=== PATIENT | female | born 2000 | race Native Hawaiian/Other Pacific Islander ===

== ENCOUNTER 2024-07-24 06:56 | Emergency (ER) | payer BC, SELFPAY ==
[2024-07-24] MEDS ORDERED: Morphine 4 MG/ML VIAL ONE ×2 (07:27→09:41)
[2024-07-24] MEDS ORDERED: Ondansetron PF 4 MG/2 ML Vial ONE (07:28)
[2024-07-24 07:37] LABS: #Basophils 0.04 10x3/uL (0.0-0.2); #Eosinophils 0.21 10x3/uL (0.0-0.5); #Monocytes 0.58 10x3/uL (0.0-1.1); #Neutrophils 6.03 10x3/uL (1.5-8.4); %Basophils 0.4 % (0.0-2.0); %Eosinophils 2.2 % (0.0-6.0); %Lymphocytes 28.5 % (18.0-47.0); %Neutrophils 62.5 % (40.0-75.0); Hematocrit 41.5 % (34.9-44.5); Hemoglobin 13.2 g/dL (12.0-15.5); Mean Corpuscular HGB CONC 31.8 g/dL (32.0-36.0); Mean Corpuscular Hemoglobin 26.1 pg (27.0-33.0); Mean Corpuscular Volume 82.2 fL (81.6-98.3); Mean Platelet Volume 10.3 fL (7.4-10.4); Platelet Count 335 10x3/uL (150-450); RBC Distribution Width 13.4 % (11.5-14.5); Red Blood Cell (RBC) Count 5.05 10x6/uL (3.90-5.03); White Blood Cell (WBC) Count 9.7 10x3/uL (3.5-10.5)
[2024-07-24 08:11] LABS: ALT (SGPT) 35 U/L (8-55); AST (SGOT) 19 U/L (5-34); Albumin 3.8 g/dL (3.5-5.0); Alkaline Phosphatase 85 U/L (40-110); Anion Gap 17 mmol/L (10-20); BUN (Urea Nitrogen) 13 mg/dL (7.0-18.7); Bilirubin, Total 0.3 mg/dL (0.2-1.2); Calc. Creatinine Clearance 0 mL/min (70-130); Calcium 9.2 mg/dL (7.8-10.44); Carbon Dioxide 18 mmol/L (22-29); Chloride 108 mmol/L (98-107); Estimated GFR 86; Globulin 4.3 g/dL (2.4-3.5); Glucose 116 mg/dL (70-105); Lipase 25 U/L (8-78); Potassium 3.5 mmol/L (3.5-5.1); Protein, Total 8.1 g/dL (6.0-8.3); Sodium 139 mmol/L (136-145)
[2024-07-24 08:21] LABS: Bilirubin Neg (Negative); Blood, Urine 25 (Negative); Clarity Clear (Clear); Glucose, Urine (Dipstick) Normal (Negative); Ketone, Urine Negative (Negative); Leukocyte Negative (Negative); Nitrite Negative (Negative); Protein, Urine (Dipstick) Negative (Neg-Trace); Urobilinogen Normal mg/dL (Less than 2)
[2024-07-24 08:27] LABS: Pregnancy Test - Urine (BHCG) Negative (Negative); Pregu Control Background? CLEAR/WHITE (CLR/WHITE); Pregu Control Bar Appear? YES (CONTROL BAR)
[2024-07-24] MEDS ORDERED: Ketorolac Tromethamine 30 MG (1 mL) VIAL ONE (09:42)
[2024-07-24 09:59] LABS: Bacteria/HPF 1+ HPF (None Seen); CAUTI Indications for Culture Pelvic or flank pain; RBC/HPF 0-3 HPF (0-3); WBC/HPF 0-3 HPF (0-3)
[2024-07-24 10:00] LABS: Urine Culture Reflex No No
[2024-07-24] MEDS ORDERED: Iopamidol 300 61% 100 ML VIAL FS ONE (10:18)
== END 2024-07-24 12:38 | disposition home or self-care (01) ==
LOC: CSHERS 06:56
DX: N83.8 Other noninflammatory disorders of ovary, fallopian tube and broad ligament (principal); Z55.0 Illiteracy and low-level literacy
CPT/HCPCS: 74177; 76856; 80053; 81001; 81025; 83690; 85025; 96374; 96375; 96376; J1885; J2272; J2405; Q9967

== ENCOUNTER 2024-08-12 05:55 | Day surgery (SDC) | payer BC ==
[2024-08-09 08:22] VITALS: BMI 36.8
[2024-08-09 09:28] LABS: Hematocrit 40.5 % (34.9-44.5); Hemoglobin 12.8 g/dL (12.0-15.5); Mean Corpuscular HGB CONC 31.6 g/dL (32.0-36.0); Mean Corpuscular Hemoglobin 26.6 pg (27.0-33.0); Mean Corpuscular Volume 84.2 fL (81.6-98.3); Mean Platelet Volume 10.5 fL (7.4-10.4); Platelet Count 348 10x3/uL (150-450); RBC Distribution Width 13.8 % (11.5-14.5); Red Blood Cell (RBC) Count 4.81 10x6/uL (3.90-5.03); White Blood Cell (WBC) Count 8.8 10x3/uL (3.5-10.5)
[2024-08-09 10:41] LABS: BHCG - Serum Negative (NEGATIVE); Pregs Control Background? CLEAR/WHITE (CLR/WHITE); Pregs Control Bar Appear? YES (CONTROL BAR)
[2024-08-12] MEDS ORDERED: Gabapentin 300 MG CAP ONE (06:38)
[2024-08-12] MEDS ORDERED: Famotidine/PF 20 mg/2ml Vial ONE (06:38)
[2024-08-12] MEDS ORDERED: CeleCOXIB 100 MG CAP ONE (06:38)
[2024-08-12] MEDS ORDERED: Bupivacaine HCl 0.5%/Epinephrine 1:200,000/PF 30 ml Vial ONE (07:00)
[2024-08-12] MEDS ORDERED: fentaNYL 50 mcg/mL 1 mL Vial ONE ×2 (07:15→09:12)
[2024-08-12] MEDS ORDERED: PROPOFOL 20 ML ONE (07:15)
[2024-08-12] MEDS ORDERED: SUGAMMADEX SODIUM 200 MG/2 ML VIAL ONE (07:16)
[2024-08-12] MEDS ORDERED: Ondansetron PF 4 MG/2 ML Vial ONE ×2 (07:16→10:56)
[2024-08-12] MEDS ORDERED: Dexamethasone 4 mg/ml Vial ONE (07:16)
[2024-08-12] MEDS ORDERED: Rocuronium Bromide 10 MG/ML (10ML VIAL) ONE (07:16)
[2024-08-12] MEDS ORDERED: Metoclopramide HCl 10 MG (2 mL) VIAL ONE (07:16)
[2024-08-12] MEDS ORDERED: Midazolam HCl 2 mg/2 ml Vial ONE (07:24)
[2024-08-12] MEDS ORDERED: CEFAZOLIN 2 GM VIAL ONE (07:25)
[2024-08-12] MEDS ORDERED: PHENYLEPHRINE-NS 100 MCG/ML 10 ML SYRINGE ONE (07:50)
[2024-08-12] MEDS ORDERED: Meperidine HCl/PF 25 MG (1 mL) VIAL ONE (08:59)
[2024-08-12] MEDS ORDERED: HYDROcodone/Acetaminophen 5/325 mg Tablet ONE (10:03)
== END 2024-08-12 11:15 | disposition home or self-care (01) ==
LOC: CSHSDC 05:55
PROVIDERS: ATTEND Obstetrics & Gynecology
PROC: 0UT07ZZ Resection of Right Ovary, Via Natural or Artificial Opening (ICD-10-PCS; principal; 2024-08-12)
PROC: 0UT57ZZ Resection of Right Fallopian Tube, Via Natural or Artificial Opening (ICD-10-PCS; principal; 2024-08-12)
DX: D27.0 Benign neoplasm of right ovary (principal); N83.8 Other noninflammatory disorders of ovary, fallopian tube and broad ligament; N83.511 Torsion of right ovary and ovarian pedicle; F41.9 Anxiety disorder, unspecified
CPT/HCPCS: 36415; 84703; 85027; 86850; 86900; 86901; 88304; J1100; J2175; J2250; J2405; J2704; J2765; J3010; J3490; S2900